=== PATIENT | male | born 1970 | race Caucasian/White ===

== ENCOUNTER 2019-03-26 14:50 | Emergency (ER) | payer MEDICARE, OTHER ==
[2019-03-26 15:34] VITALS: BP 120/75; PULSE 78; RESP 18; TEMP 98.6
--- NOTE | 2019-03-26 16:21 | XR ---
EXAMINATION TYPE: XR shoulder complete LT DATE OF EXAM: 03/26/2019 CLINICAL HISTORY: Left shoulder pain with no known injury. TECHNIQUE: Three views of the left shoulder are obtained. COMPARISON: None. FINDINGS: There is no acute fracture/dislocation evident in the left shoulder. The glenohumeral claudia nt space is within normal limits. Marginal osteophytes are seen of the acromioclavicular joint. The visualized ribs are intact and unremarkable. IMPRESSION: There is no acute fracture or dislocation in the left shoulder. Mild acromioclavicular a rthropathy.
--- NOTE | 2019-03-26 17:01 | ED ---
Upper Extremity HPI - General Chief Complaint: Extremity Injury, Upper Stated Complaint: Shoulder pain Time Seen by Provider: 03/26/19 16:31 Source: patient Mode of arrival: ambulatory Limitations: no limitations - History of Present Illness Initial Comments: 48-year-old male presenting for atraumatic left shoulder pain. Patient states that he feels as though he slept on his left shoulder wrong. He states it is painful overhead ranges of motion. Patient states if he presses on the anterior aspect of the shoulder there is pain. Patient denies fall or direct trauma. Denies fever chills like symptoms. Patient denies any chest pain shortness of breath denies numbness tingling or loss sensation of the extremity. Remaining review of systems negative upon arrival patient appears well signs of acute distress. - Related Data Previous Rx's Medication Instructions Recorded Ibuprofen 800 mg PO Q8H 7 Days #21 tablet 03/26/19 Allergies Allergy/AdvReac Type Severity Reaction Status Date / Time Penicillins Allergy Unknown Verified 03/26/19 15:34 Review of Systems ROS Statement: Those systems with pertinent positive or pertinent negative responses have been documented in the HPI. ROS Other: All systems not noted in ROS Statement are negative. Past Medical History Past Medical History: No Reported History History of Any Multi-Drug Resistant Organisms: None Reported Past Surgical History: No Surgical Hx Reported Past Psychological History: Anxiety Smoking Status: Current every day smoker Past Alcohol Use History: Heavy Past Drug Use History: None Reported General Exam - General Exam Comments Initial Comments: General: The patient is awake and alert, in no distress, and does not appear acutely ill. Eye: Pupils are equal, round and reactive to light, extra-ocular movements are intact. No nystagmus. There is normal conjunctiva bilaterally. No signs of icterus. Ears, nose, mouth and throat: There are moist mucous membranes and no oral lesions. Neck: The neck is supple, there is no tenderness or JVD. Cardiovascular: There is a regular rate and rhythm. No murmur, rub or gallop is appreciated. Respiratory: Lungs are clear to auscultation, respirations are non-labored, breath sounds are equal. No wheezes, stridor, rales, or rhonchi. Musculoskeletal: Normal inspection of the shoulders bilaterally. Patient is very tender to palpation over the anterior shoulder. Patient has pain with overhead ranges of motion. Patient has positive Neer sign. Normal ROM, no tenderness of the right upper extremity. Strength 5/5 at the shoulders elbows and wrists bilaterally. Sensation intact of the upper extremities equal and comparison bilaterally. Radial pulses equal bilaterally 2+. Neurological: A&O x 3. CN II-XII intact, There are no obvious motor or sensory deficits. Coordination appears grossly intact. Speech is normal. Skin: Skin is warm and dry and no rashes or lesions are noted. Psychiatric: Cooperative, appropriate mood & affect, normal judgment. Limitations: no limitations Course Vital Signs 03/26/19 15:32 Temperature 98.6 F Pulse Rate 78 Respiratory 18 Rate Blood Pressure 120/75 O2 Sat by Pulse 98 Oximetry Medical Decision Making - Medical Decision Making Very well-appearing set 48-year-old male presenting for atraumatic left shoulder pain. No chest pain or shortness of breath. Patient appears well vital signs within acceptable limits. Patient has limited range of motion with overhead movements. He has very exquisite tenderness over the anterior aspect of shoulder. I feel this patient most likely has a tendinitis. Patient has negative imaging studies for acute osseous injury. Patient is neurovascularly intact he appears well this time feel patient is stable for discharge with sling for comfort and Rice instructions. Patient was provided orthopedic surgery follow-up. Return parameters were discussed at length and patient was discharged appearing well. Disposition Clinical Impression: Left shoulder pain, Tendonitis Disposition: HOME SELF-CARE Condition: Good Instructions (If sedation given, give patient instructions): Tendinitis (ED), Shoulder Pain (ED) Additional Instructions: Please use medication as discussed. Please follow-up with family doctor in the next 2 days. Please return to emergency room if the symptoms increase or worsen or for any other concerns. Prescriptions: Ibuprofen 800 mg PO Q8H 7 Days #21 tablet Is patient prescribed a controlled substance at d/c from ED?: No Referrals: Josef Bolaños MD [Primary Care Provider] - 1-2 days Time of Disposition: 17:01
== END 2019-03-26 17:20 | disposition home or self-care (01) ==
LOC: EC 14:50
DX: M75.92 Shoulder lesion, unspecified, left shoulder (principal); F17.200 Nicotine dependence, unspecified, uncomplicated; Z88.0 Allergy status to penicillin
CPT/HCPCS: 99283